=== PATIENT | male | born 1980 | race Caucasian/White ===

== ENCOUNTER 2016-05-29 14:03 | Emergency (ER) | payer OTHER ==
[~2016-05-29 14:03] MED LIST: ALBU18HF INHALATION; LORA1TAB PO; ONDA4TAB9 PO
[2016-05-29 14:12] VITALS: BP 95/43; PULSE 107; RESP 22; O2SAT 92
[2016-05-29 14:39] LABS: BASOPHILS % (AUTO) 0.8 % (0-3); EOSINOPHILS % (AUTO) 7.8 % (0-5); MONOCYTES % (AUTO) 8.6 % (4-12); Mean Corpuscular Volume 93.3 fL (81-100); NEUTROPHILS % (AUTO) 49.5 % (40-74); Platelet Count 419 bil/L (150-400)
--- NOTE | 2016-05-29 14:58 | DRSVH ---
PROCEDURE: CT BRAIN WITHOUT CONTRAST ([id number]) INDICATIONS: 35-year-old male with seizures. TECHNIQUE: Noncontrast 4.5 mm thick angled axial sections acquired from the foramen magnum to the vertex, with c oronal reformats. COMPARISON: [facility], CT, CT BRAIN WO CON, 07/20/2015, 12:21. [facility], CT, BRAIN W/O CONTRAST, 10/16/2013, 11:05. FINDINGS: Image quality: Excellent. CSF spaces: Basal cisterns are patent. No extra-axial fluid collections. Ventricles are normal in size and shape. Brain: No midline shift. No intracranial masses or hemorrhage. Weeks-white matter interface is norm al. Skull and face: Calvarium and visualized facial bones are intact, without suspicious lesions. Sinuses: There is increased moderate right and unchanged mild left maxillary sinus mucosal thickening . There is increased degree of scattered bilateral ethmoid air cell fluid. Medial right sphenoid sinu s mucous retention cyst or polyp is unchanged. Mastoid air cells appear clear. IMPRESSION: 1. No acute intracranial abnormalities. 2. Multifocal sinus mucosal thickening, increased in the right maxillary sinus, suggesting sinusitis. Dictated by: Kota Oates M.D. on 05/29/2016 at 14:56 Approved by: Kota Oates M.D. on 05/29/2016 at 14:56
--- NOTE | 2016-05-29 15:06 | ED.REPORT ---
HPI-Seizure Date of Service May 29, 2016 ED Provider: Ernie Medrano MD 35 year old male with a hx of a known seizure disorder presents to the ED via EMS after he was found by his girlfriend having 2 seizures today. Pt states "I was getting in the shower when I felt weird and don't remember anything after". His girlfriend had to pound down the door because she could hear him seizing. He reports he bit his tongue but denies any other injury or illness including, fever, chills, vomiting and diarrhea. He states that he is complaint with his seizure medications and has seizures a few times a year. En route he was given 10mg Versed IM. Nursing Notes Stated Complaint: SEIZURE Chief Complaint: Seizure Nursing Notes Reviewed: Yes Allergies: Coded Allergies: levetiracetam (Verified Allergy, Intermediate, sucidial tendencies, ) ibuprofen (Verified Adverse Reaction, Intermediate, causes ulcers, 10/24/15 ) Uncoded Allergies: No Known Allergies (Allergy, Mild, 08/01/03) Scheduled PRN Albuterol Sulfate (Ventolin HFA Inhaler) 200 Puff/18 Gm Inhaler 1-2 PUFFS INHALATION q4-6 hours PRN PRN For Shortness of Breath Lorazepam (Lorazepam) 1 Mg Tablet 1 MG PO DAILY PRN PRN For Seizure Take one tab daily until you see seizure specialist on Sunday. If you have an aura or abscence seizure it is OK to take a 2nd tab. Ondansetron ODT (Zofran ODT) 4 Mg Tablet 4 MG PO Q4H PRN PRN For Nausea General Time Seen by Provider: 14:27 Chief Complaint Chief Complaint: Seizure, generalized Seizure Anatomic Location: Generalized Hx Obtained From: Patient, EMS Arrived By: Ambulance Onset Occurred: 1 - 4 hours ago Symptom Duration: Intermittent Location: : Tongue Quality: Painful Severity: Current: Mild Associated with: Reports: Tongue biting, Denies: Fever, Shortness of breath Similar Sx Previous: Yes Past Medical History Past Medical History Notes: PCP: None Admit to 07/20- for seizures, consult by Dr. Debra GIBBONS done at that time. Was D/C'd on Keppra, but developed intolerance - changed to zonisemide 100mg daily Past Medical History Seizures Patient admitted 06/2015 for seizures Patient was seen in the ED on 10/16/2013 post-seizure after a fall in the shower, was intubated, and transferred to [facility] at that time Remote history of seizures as a baby ho back pain Past Surgical History Reviewed, pt denies Smoking History Current Every Day Smoker Social History Alcohol Use: Denies alcohol use Drug Use: THC Other Social History: Good social support, Local resident Ambulatory Status Independent Review of Systems Basic Review of Systems GI: No abdominal pain, No anorexia, No nausea, No vomiting Psychiatric: Normal thought content Constitutional: Denies: Chills, Fever Ears / Nose / Throat: Reports: Tongue pain, Denies: Nasal congestion Respiratory: Denies: Non-productive cough, Shortness of breath Cardiovascular: Denies: Chest pain, Edema Skin: Denies Diaphoresis, Denies Rash Neurologic: Reports: Seizure, Shaking Complete sys rev & neg: except as marked. Physical Exam Initial Vital Signs Vital Signs (First) Date Time Temp Pulse Resp B/P Pulse Ox O2 Delivery O2 Flow Rate FiO2 05/29/16 14:12 36.7 107 22 95/43 92 Room Air Initial VS: Reviewed, Vital signs abnormal Head / Eyes: Atraumatic, Normocephalic, PERRL Abdomen / GI: Soft, Non-tender Extremities: Vascular intact, Neuro intact Skin: Warm, Dry, No cyanosis Psychiatric: Mood/affect normal, Behavior normal, Normal thought content General/Constitutional: Awake, Alert Neck: Supple, Full range of motion Petechiae to the R anterior neck in a square/rectangular patch about 5x6cm. Respiratory / Chest: Breath sounds NL, Breath sounds = bilat, No respiratory distress, No rales, No rhonchi, No wheezing Cardiovascular: Heart rate NL, Regular rhythm, Heart sounds NL, Peripheral circulation NL Neurologic: Oriented X3, Speech NL, No motor deficits ENT: Mucous membranes moist 2 bite perez to the L side of tongue. Back: Atraumatic, No midline vertebral tend Interpretation & Diagnostics Lab Results Interpretation Result Diagram: 05/29/16 1437 05/29/16 1437 Test 05/29/16 14:37 White Blood Count 17.4th/mm3 (3.8-10.1) Red Blood Count 4.76mil/mm3 (4.40-5.80) Hemoglobin 14.3g/dL (13.8-17.2) Hematocrit 44.4% (41.0-50.0) Mean Corpuscular Volume 93.3fL (81-100) Mean Corpuscular Hemoglobin 30.0pg (27.0-35.0) Mean Corpuscular Hemoglobin Concent 32.2% (32.0-37.0) Red Cell Distribution Width 13.3% (12.3-15.4) Platelet Count 419bil/L (150-400) Neutrophils (%) (Auto) 49.5% (40-74) Lymphocytes (%) (Auto) 32.6% (14-46) Monocytes (%) (Auto) 8.6% (4-12) Eosinophils (%) (Auto) 7.8% (0-5) Basophils (%) (Auto) 0.8% (0-3) Sodium Level 142mEq/L (134-144) Potassium Level 3.7mEq/L (3.5-5.2) Chloride Level 104mEq/L (97-108) Carbon Dioxide Level 9mmol/L (18-29) Blood Urea Nitrogen 12mg/dL (6-20) Creatinine 1.09mg/dL (0.76-1.27) Estimat Glomerular Filtration Rate 82mL/min (>59) Glucose Level 172mg/dL (60-99) Calcium Level 9.1mg/dL (8.5-10.1) Total Bilirubin 0.3mg/dL (0.0-1.2) Aspartate Amino Transf (AST/SGOT) 18U/L (0-50) Alanine Aminotransferase (ALT/SGPT) 14U/L (0-44) Alkaline Phosphatase 66U/L (25-150) Total Protein 8.0g/dL (6.4-8.4) Albumin 4.7g/dL (3.4-5.0) Alcohol, Quantitative < 10mg/dL (0-10) General Lab Results Interp 1: Labs reviewed CT Head Interpretation IMPRESSION: 1. No acute intracranial abnormalities. 2. Multifocal sinus mucosal thickening, increased in the right maxillary sinus, suggesting sinusitis. Dictated by: Kota Oates M.D. on 05/29/2016 at 14:56 Study: Head CT no contrast Interpretation / Wet Read by: Interpret - Radiologist Re-Eval/Medical Decision Med Decision/Clinical Course The patient had a seizure with a known seizure disorder. He states he is compliant with his medications. He has some signs of trauma such as some petechiae to the right side of his neck and he put his tongue. He does not have any other bony injuries or findings. The patient had a CT ordered prior to my evaluation. The patient awoke and was appropriate. It is unclear as to the cause of his seizure such as infection or stress or he simply had a breakthrough seizure. He was encouraged to pop his neurologist to discuss possible medication changes. Re-Evaluation/Progress #1: Time of Eval: 15:43 )( Re-Eval Neurologic Exam: Alert, Pt is back to baseline, Oriented X3, Speech normal, No motor deficits Patient Status: Condition improved Re-Evaluation/Progress Note: Pt updated of labs and imaging. Re-Evaluation/Progress #2: Time of Eval: 16:01 Patient Status: Condition improved Re-Evaluation/Progress Note: Discussed plan for discharge and follow up. All questions addressed. Counseled Regarding: Diagnosis, Lab results, Need for follow-up, When/why to return to ED Discharge & Departure Impression: Primary Impression: Seizure Disposition: Home Discharge Condition All VS Reviewed: Yes Condition: Improved Additional Instructions: Your head CT today was negative. Continue to take your seizure medications as prescribed. Call to set up an appointment with your neurologist as you may need to have your medications adjusted. Seek care for any new or concerning symptoms. Do not drive or do other activities that would cause you or others harm. Referrals: Valerie Rust (PCP) Eloisa Luciano MD Scribe Attestation Portions of this note were transcribed by Jenni Gonzalez. I, (Dr. Naik) personally performed the history, physical exam and medical decision-making; I reviewed and confirmed the accuracy of the information in the transcribed note. Signed by: Jenni Gonzalez. 05/29/2016, 1602 copies to: Eloisa Luciano MD; Valerei Rust Jena M MD May 29, 2016 15:06 Jenni Gonzalez May 29, 2016 15:13
[2016-05-29] MEDS ORDERED: 0.9% Sodium Chloride 1,000 ML IV ONE (15:10)
[2016-05-29 16:21] VITALS: BP 112/60; PULSE 71; O2SAT 97
== END 2016-05-29 15:00 ==
LOC: SED 14:03
DX: R56.9 Unspecified convulsions (principal); F17.200 Nicotine dependence, unspecified, uncomplicated; Z88.8 Allergy status to other drugs, medicaments and biological substances
CPT/HCPCS: 36415; 70450; 80053; 85025; 99285; G0480

== ENCOUNTER 2016-06-06 13:25 | Emergency (ER) | payer OTHER ==
[2016-06-06] VITALS (8 sets, daily range): BP systolic 107–145; BP diastolic 51–70; PULSE 97–125; RESP 15–28; O2SAT 91–98
[~2016-06-06] VITALS: Ht 190.5 cm; Wt 90.0 kg
--- NOTE | 2016-06-06 13:37 | ED.REPORT ---
HPI-Seizure Date of Service Jun 06, 2016 ED Provider: Franklin Swain DO The patient is a 35 year old male with history of seizures who was brought to the emergency department by EMS after he had a seizure prior to arrival. He had an appointment scheduled today with his neurologist due to increased frequency of seizures. Unfortunately he missed his appointment due to the seizure. He does not know who is neurologist is. At this time he feels like he typically would after a seizure. The patient later reports that he was smoking marijuana prior to the seizure. Nursing Notes Stated Complaint: SEIZURE Chief Complaint: Seizure Nursing Notes Reviewed: Yes Allergies: Coded Allergies: levetiracetam (Verified Allergy, Intermediate, sucidial tendencies, ) ibuprofen (Verified Adverse Reaction, Intermediate, causes ulcers, 10/24/15 ) Uncoded Allergies: No Known Allergies (Allergy, Mild, 08/01/03) Scheduled Phenytoin Sodium ER (Dilantin) 100 Mg Capsule 300 MG PO DAILY Scheduled PRN Albuterol Sulfate (Ventolin HFA Inhaler) 200 Puff/18 Gm Inhaler 1-2 PUFFS INHALATION q4-6 hours PRN PRN For Shortness of Breath Lorazepam (Lorazepam) 1 Mg Tablet 1 MG PO DAILY PRN PRN For Seizure Take one tab daily until you see seizure specialist on Sunday. If you have an aura or abscence seizure it is OK to take a 2nd tab. Ondansetron ODT (Zofran ODT) 4 Mg Tablet 4 MG PO Q4H PRN PRN For Nausea General Time Seen by Provider: 13:38 Chief Complaint Chief Complaint: Seizure, generalized Seizure Anatomic Location: Generalized Hx Obtained From: Patient, EMS Arrived By: Ambulance Onset Occurred: Just prior to arrival Symptom Duration: 1 - 15 minutes Progression Since Onset: Gradually improving Severity: Current: No pain currently Severity: Maximum: No pain Recent Healthcare: Recent doctor visit Similar Sx Previous: Yes Past Medical History Past Medical History Notes: PCP: None Past Medical History Seizures Patient admitted 06/2015 for seizures Patient was seen in the ED on 10/16/2013 post-seizure after a fall in the shower, was intubated, and transferred to [facility] at that time Remote history of seizures as a baby ho back pain Past Surgical History Reviewed, pt denies Smoking History Current Every Day Smoker Social History Alcohol Use: Denies alcohol use Drug Use: THC Other Social History: Good social support, Local resident Ambulatory Status Independent Review of Systems Neurologic: Reports: Seizure, Shaking Complete sys rev & neg: except as marked. Physical Exam Initial Vital Signs Vital Signs (First) Date Time Temp Pulse Resp B/P Pulse Ox O2 Delivery O2 Flow Rate FiO2 06/06/16 13:36 36.8 124 22 124/64 98 Room Air 06/06/16 15:47 6 Initial VS: Reviewed ENT: Mucous membranes moist, Conjunctiva normal, No scleral icterus Abdomen / GI: Soft, Non-tender, No guarding, No rebound, No distention Lymphatic: No lymphadenopathy Extremities: Vascular intact, Neuro intact, No swelling, No tenderness Skin: Warm, Dry, No cyanosis Psychiatric: Mood/affect normal, Behavior normal, Normal thought content Neck: Supple, No meningismus, Full range of motion, No swelling, Non-tender Respiratory / Chest: Atraumatic, Breath sounds NL, Breath sounds = bilat, No respiratory distress, No rales, No rhonchi, No wheezing Cardiovascular: Regular rhythm, Heart sounds NL, No gallop, No murmurs, No rubs , Peripheral circulation NL Heart Rate / Rhythm: Positive: Tachycardia Neurologic: No motor deficits, No sensory deficits Slightly confused otherwise neuro is intact Head / Eyes: Atraumatic, Normocephalic, PERRL, EOMI, No nystagmus, No photophobia Interpretation & Diagnostics Lab Results Interpretation Result Diagram: 06/06/16 1400 06/06/16 1400 Test 06/06/16 14:00 White Blood Count 11.8th/mm3 (3.8-10.1) Red Blood Count 4.81mil/mm3 (4.40-5.80) Hemoglobin 14.4g/dL (13.8-17.2) Hematocrit 42.7% (41.0-50.0) Mean Corpuscular Volume 88.8fL (81-100) Mean Corpuscular Hemoglobin 29.9pg (27.0-35.0) Mean Corpuscular Hemoglobin Concent 33.7% (32.0-37.0) Red Cell Distribution Width 13.3% (12.3-15.4) Platelet Count 408bil/L (150-400) Neutrophils (%) (Auto) 74.3% (40-74) Lymphocytes (%) (Auto) 12.6% (14-46) Monocytes (%) (Auto) 6.4% (4-12) Eosinophils (%) (Auto) 5.4% (0-5) Basophils (%) (Auto) 0.5% (0-3) Hold Purple Top Tube Received (Received) Hold Blue Top Tube Received (Received) Sodium Level 137mEq/L (134-144) Potassium Level 4.6mEq/L (3.5-5.2) Chloride Level 98mEq/L (97-108) Carbon Dioxide Level 19mmol/L (18-29) Blood Urea Nitrogen 8mg/dL (6-20) Creatinine 1.01mg/dL (0.76-1.27) Estimat Glomerular Filtration Rate 90mL/min (>59) Glucose Level 98mg/dL (60-99) Calcium Level 9.4mg/dL (8.5-10.1) Hold Dunlevy Top Tube Received (Received) Hold Griffiths Top Tube Received (Received) X-Ray Chest Interpretation Chest Xray Interpretation: IMPRESSION: Normal for age. Dictated by: Leon Caceres M.D. on 06/06/2016 at 15:50 Interpretation / Wet Read by: Interpret - Radiologist Re-Eval/Medical Decision Med Decision/Clinical Course Patient had a breakthrough seizure while in the ER generalized tonic-clonic with a postictal period. He was treated 2 mg of IV Ativan. Chest x-ray was unremarkable. It is thought that his transient hypoxia was related to his postictal phase. Patient has been observed now for several hours without any recurrence of seizures after being loaded with fosphenytoin. Neurology is consulted who agrees with the discharge plan after a period of observation the ER. He will be started on Dilantin. Return in follow-up preCautions given. Source of Hx: Old records, EMS Re-Evaluation/Progress #1: Time of Eval: 14:53 Re-Evaluation/Progress Note: Rechecked the patient. Will await neurologist. Re-Evaluation/Progress #2: Time of Eval: 15:30 Re-Evaluation/Progress Note: The patient had a seizure after his x-ray was taken. Ativan ordered. Re-Evaluation/Progress #3: Time of Eval: 15:36 Re-Evaluation/Progress Note: The patient is now stable. Discussed case with family members. Re-Evaluation/Progress #4: Time of Eval: 16:00 Re-Evaluation/Progress Note: Rechecked the patient. He is post-ictal but respond to painful stimuli appropriately. Re-Evaluation/Progress #5: Time of Eval: 16:25 Re-Evaluation/Progress Note: The patient is still post-ictal. Re-Evaluation/Progress #6: Time of Eval: 17:08 Re-Evaluation/Progress Note: With minor stimulation the patient woke up and is now verbal. Consultation #1: Consulted With: Neurology Call Returned at: 15:12 [employer] Rep: Agrees with eval, Agrees with plan Note: Spoke to the patient's neurologist, Dr. Kim. He requests that we load him with Dilantin and to add Dilantin 300 mg daily. Consultation #2: Referral / Consult Name: Ar Chavarria MD Consulted With: Neurology Call Returned at: 17:14 [employer] Rep: Agrees with eval, Agrees with plan Note: He agrees with plan to observe the patient and discharge home on Dilantin if he does not have any additional break through seizures. Counseled Regarding: Diagnosis, Lab results, Need for follow-up, When/why to return to ED Discharge & Departure Impression: Primary Impression: Seizure Disposition: Home Discharge Condition All VS Reviewed: Yes Condition: Stable Additional Instructions: Thank you for entrusting us with your care today. I am sorry you are dealing with this. Take the Dilantin as prescribed. Call your neurologist tomorrow to schedule a close followup appointment. I recommend that you stop smoking marijuana. Return to the emergency department if you develop recurrent symptoms , headache, confusion, weakness, or any other new or concerning symptoms. Referrals: Valerie Rust (PCP) Eddie Attestation Portions of this note were transcribed by Swetha Pham. I, Dr. Swain personally performed the history, physical exam and medical decision-making; I reviewed and confirmed the accuracy of the information in the transcribed note. Signed by: Eddie Stewart, 06/06/2016 and 0936. copies to: Valerie RustFranklin Anjum MARIE Jun 06, 2016 13:37 Swetha Pham Jun 06, 2016 13:40
[2016-06-06] MEDS ORDERED: Fosphenytoin Inj 1,000 mgPE in 0.9% Sodium Chloride 50 ML IV ONE (15:15)
--- NOTE | 2016-06-06 15:52 | DRSVH ---
PROCEDURE: X-RAY CHEST, TWO VIEWS ([id number]) INDICATIONS: Low SpO2 TECHNIQUE: 2 views of the chest were acquired. COMPARISON: [facility], CR, CHEST 1VW (PORTABLE), 10/16/2013, 10:34. FINDINGS: Surgical changes and devices: None. Lungs and pleura: No pleural effusions or pneumothorax. Lungs are clear. Mediastinum: Mediastinal contours are normal. Heart size is normal. Bones and chest wall: No suspicious bony abnormalities. Soft tissues appear unremarkable. IMPRESSION: Normal for age. Dictated by: Leon Caceres M.D. on 06/06/2016 at 15:50 Approved by: Leon Caceres M.D. on 06/06/2016 at 15:50
[2016-06-06 16:03] LABS: BASOPHILS % (AUTO) 0.5 % (0-3); EOSINOPHILS % (AUTO) 5.4 % (0-5); MONOCYTES % (AUTO) 6.4 % (4-12); Mean Corpuscular Hemoglobin 29.9 pg (27.0-35.0); Mean Corpuscular Volume 88.8 fL (81-100); NEUTROPHILS % (AUTO) 74.3 % (40-74); Platelet Count 408 bil/L (150-400)
[2016-06-06] MEDS ORDERED: PHN100C PO (19:04)
== END 2016-06-06 20:12 | disposition home or self-care (01) ==
LOC: SED 13:25 → EDUNIT# 13:25 → EDBD 13:25 → SED 20:12
DX: G40.409 Other generalized epilepsy and epileptic syndromes, not intractable, without status epilepticus (principal); F17.200 Nicotine dependence, unspecified, uncomplicated; Z88.8 Allergy status to other drugs, medicaments and biological substances; Z88.6 Allergy status to analgesic agent
CPT/HCPCS: 36415; 71020; 80048; 85025; 96374; 96375; 99285; J2060; Q2009

== ENCOUNTER 2016-08-10 19:30 | Emergency (ER) | payer MEDICAID, OTHER ==
[~2016-08-10] VITALS: Ht 185.4 cm; Wt 90.9 kg
[~2016-08-10 19:30] MED LIST changes: +PHN100C PO
[2016-08-10 19:44] VITALS: BP 118/75; PULSE 70; RESP 20; O2SAT 98
--- NOTE | 2016-08-10 22:22 | ED.REPORT ---
HPI-Extremity Problem Upper Date of Service Aug 10, 2016 ED Provider: Susie Gutierrez MD Patient is a 36 year old male with a history of seizure disorder who presents to the ED with a dog bite to his right hand that he sustained just prior to arrival. The patient states that his two dogs were fighting and that he broke up their fight. One of his dogs bit his right hand, with several puncture wounds and lacerations. The patient is able to wiggle his fingers and denies any numbness in his fingers. The patient is right hand dominant. Dogs are household pets who are vetted regularly. Tetanus is not up to date. Patient did not sustain any other injuries. Nursing Notes Stated Complaint: RIGHT HAND INJURY DOG BITE Chief Complaint: Skin Rash/Abscess Nursing Notes Reviewed: Yes Allergies: Coded Allergies: levetiracetam (Verified Allergy, Intermediate, sucidial tendencies, ) ibuprofen (Verified Adverse Reaction, Intermediate, causes ulcers, 10/24/15 ) Uncoded Allergies: No Known Allergies (Allergy, Mild, 08/01/03) Scheduled Amoxicillin/Clav K 875-125 mg (Augmentin 875-125 mg) 1 Each Tablet 1 TABLET PO BID Phenytoin Sodium ER (Dilantin) 100 Mg Capsule 300 MG PO DAILY Scheduled PRN Albuterol Sulfate (Ventolin HFA Inhaler) 200 Puff/18 Gm Inhaler 1-2 PUFFS INHALATION q4-6 hours PRN PRN For Shortness of Breath Hydrocodone-Acetaminophen 5-325 mg (Hydrocodone-Acetaminophen 5-325 mg) 1 Each Tablet 1 TABLET PO Q4H PRN PRN For Pain Lorazepam (Lorazepam) 1 Mg Tablet 1 MG PO DAILY PRN PRN For Seizure Take one tab daily until you see seizure specialist on Sunday. If you have an aura or abscence seizure it is OK to take a 2nd tab. Ondansetron ODT (Zofran ODT) 4 Mg Tablet 4 MG PO Q4H PRN PRN For Nausea Ondansetron ODT (Ondansetron ODT) 4 Mg Tab.rapdis 4 MG PO Q6H PRN PRN For Nausea General Time Seen by MD: 22:19 Chief Complaint Hand injury right Hx Obtained From: Patient Arrived By: Walk-in Onset Occurred: Just prior to arrival Symptom Duration: Since onset Caused by: Accidental Context: Occurred at: Home injury Location: : Hand right Quality: Painful Severity: Current: Moderate Severity: Maximum: Moderate Recent Healthcare: No recent doctor visit, No recent hospitalization Similar Sx Previous: No Past Medical History Past Medical History Notes: PCP: None Past Medical History Seizures Patient admitted 06/2015 for seizures Patient was seen in the ED on 10/16/2013 post-seizure after a fall in the shower, was intubated, and transferred to [facility] at that time ho back pain Past Surgical History Reviewed, pt denies Smoking History Current Every Day Smoker Social History Alcohol Use: Denies alcohol use Drug Use: THC Other Social History: Good social support, Local resident Ambulatory Status Independent Review of Systems Musculoskeletal: Reports: Extremity pain, Joint pain Neurologic: Denies: Numbness, Weakness Complete sys rev & neg: except as marked. Hematologic: Reports Bleeding Physical Exam Initial Vital Signs Vital Signs (First) Date Time Temp Pulse Resp B/P Pulse Ox O2 Delivery O2 Flow Rate FiO2 08/10/16 19:44 36.6 70 20 118/75 98 Room Air Initial VS: Reviewed Head / Eyes: Atraumatic, Normocephalic, PERRL ENT: Conjunctiva normal, No scleral icterus Neck: Supple, Full range of motion Respiratory: Breath sounds normal, Clear to auscultation, No respiratory distress Lower Extremities: Vascular intact, Neuro intact Skin: Warm, Dry, No cyanosis Neurologic: Alert, Oriented, Nonfocal Psychiatric: Mood/affect normal, Behavior normal, Normal thought content General/Constitutional: Awake, Alert, No acute distress Cardiovascular: Heart rate NL, Regular rhythm, Heart sounds NL, No murmurs, Cap refill not delayed Wrist / Hand: Neurologic intact, Vascular intact, Tendon function NL Right hand: multiple superficial puncture wounds and abrasions consistent with dog bites over the dorsal aspect of hand. Radial, ulnar, and medial nerves intact. He is able to flex and extend hand appropriately. 5/5 motor strength and intact sensation. Brisk cap refill. Interpretation & Diagnostics X-Ray Interpretation Xray Interpretation: Impression: No acute fracture or foreign body. X-Ray Ordered: Hand right Interpretation / Wet Read by: Wet read ED physician Re-Eval/Medical Decision Med Decision/Clinical Course 36-year-old male with history of seizure disorder here after being bitten by his dogs which are household pets and up-to-date with her vaccines. Differential diagnosis includes but is not limited to punch her wound versus laceration versus contusion versus fracture. By my view of the x-ray, I see no fracture. He was given Augmentin, his tetanus shot was updated, and he was discharged with Augmentin and Harwood for pain. He is aware and amenable to discharge and has been given very strict return precautions. I do not feel he requires rabies prophylaxis as these were household pets who are vaccinated. Source of Hx: Old records Re-Evaluation/Progress : Time of Eval: 23:13 Patient Status: Condition improved Re-Evaluation/Progress Note: The patient's x-ray was negative. Patient understands and agrees with the plan to be discharged home. Discharge instructions and follow-up discussed. All questions were addressed. Return to the ED warnings given. Counseled Regarding: Diagnosis, Need for follow-up, When/why to return to ED Discharge & Departure Impression: Primary Impression: Dog bite of right hand Encounter type: initial encounter Qualified Code: S61.451A - Open bite of right hand, initial encounter Disposition: Home Discharge Condition All VS Reviewed: Yes Condition: Stable Patient Instructions: Animal Bite (ED) Additional Instructions: The x-ray of your hand was normal. Use Bacitracin or Neosporin on your wounds to help prevent infection You have been prescribed Augmentin, take as directed. Use Zofran as needed for nausea. Take Harwood as directed for pain. Do not drink alcohol, take acetaminophen or drive while on this medication. Follow-up with your doctor in the next week. Return to the Emergency Department if you develop increased pain, redness or swelling of your hand, fever, or any other concerning symptoms. Referrals: OTHER,PHYSICIAN (PCP) BREA CHAUHAN MD (Family) Eddie Attestation Portions of this note were transcribed by Lisa Jimenez. I, Dr. Gutierrez personally performed the history, physical exam and medical decision-making; I reviewed and confirmed the accuracy of the information in the transcribed note. Signed by: Eddie Malone, 08/10/2016 [id number] copies to: BREA CHAUHAN MD, Rebecca A MD Aug 10, 2016 22:22 Lisa Jimenez Aug 10, 2016 22:31
[2016-08-10] MEDS ORDERED: TdaP Vaccine 0.5 mL Inj IM ONE (22:35)
[2016-08-10] MEDS ORDERED: Amoxicillin-Clav 875-125 mg Tablet PO ONE (22:35)
[2016-08-10] MEDS ORDERED: HYDROcodone-APAP 5-325 mg Tablet PO ONE (23:15)
[2016-08-10] MEDS ORDERED: ONDA4TAB12 PO (23:40)
[2016-08-10] MEDS ORDERED: AMOX-366 PO (23:40)
[2016-08-10] MEDS ORDERED: HYDR-4003 PO (23:41)
--- NOTE | 2016-08-11 10:03 | DRSVH ---
PROCEDURE: X-RAY RIGHT HAND, MINIMUM THREE VIEWS ([id number]) INDICATIONS: dog bite TECHNIQUE: 3 views of the hand(s) acquired. COMPARISON: None. FINDINGS: Bones: No fractures or dislocations. Carpal bones are normally aligned. No suspicious bony lesions . Soft tissues: No suspicious soft tissue calcifications. IMPRESSION: No displaced fracture seen. If there is continued pain, followup exam or additional gosia ging such as MRI or CT could be performed for further assessment. Dictated by: Micah Schumacher A Interpreted: Britta Tracey MD on 08/11/2016 at 10:03 Transcribed by: FLORA on 08/11/2016 at 10:03 Approved by: Britta Tracey MD, PhD on 08/11/2016 at 16:56
== END 2016-08-10 23:50 | disposition home or self-care (01) ==
LOC: SED 19:30
DX: S61.451A Open bite of right hand, initial encounter (principal); W54.0XXA Bitten by dog, initial encounter; Y93.89 Activity, other specified; Y92.9 Unspecified place or not applicable; Y99.8 Other external cause status; F17.200 Nicotine dependence, unspecified, uncomplicated; Z88.6 Allergy status to analgesic agent; Z88.8 Allergy status to other drugs, medicaments and biological substances; Z23 Encounter for immunization